=== PATIENT | female | born 1975 | race Caucasian/White ===

== ENCOUNTER 2021-12-11 17:04 | Emergency (ER) | payer OTHER ==
[~2021-12-11 17:04] MED LIST: CLEOCIN300 MG PO; IBUPROFEN800 MG PO; KLONOPIN2 MG PO; MEDROL 4MG DOSEP4 MG PO; NAPROXEN500 MG PO; ONE-DAILY MULT1 EACH PO; VENTOLIN (2.5 MG/3 M INH; VIBRAMYCIN100 MG PO; VITAMIN D21250 MCG PO
[2021-12-11] MEDS ORDERED: MEDROL 4MG DOSEP4 MG PO (19:45)
[2021-12-11] MEDS ORDERED: CYCLOBENZAPRINE10 MG PO (19:45)
== END 2021-12-11 20:00 | disposition home or self-care (01) ==
LOC: FER 17:04
DX: S73.102A Unspecified sprain of left hip, initial encounter (principal); S83.92XA Sprain of unspecified site of left knee, initial encounter; S20.20XA Contusion of thorax, unspecified, initial encounter; W18.09XA Striking against other object with subsequent fall, initial encounter; Y92.89 Other specified places as the place of occurrence of the external cause; Y99.0 Civilian activity done for income or pay
CPT/HCPCS: 71101; 73502; 73564